=== PATIENT | male | born 1970 | race Two or more races ===

== ENCOUNTER 2019-10-16 09:46 | Emergency (ER) | payer SELFPAY ==
[~2019-10-16] VITALS: Ht 170.2 cm; Wt 55.0 kg
[2019-10-16] MEDS ORDERED: VISCOUS LIDOCAINE 2% 15 ML UDC MM STA (11:08)
[2019-10-16] MEDS ORDERED: MAGNESIUM/ALUMINUM HYDROXIDE/SIMETHICONE 30ML UDC PO ONE (11:15)
[2019-10-16 11:18] LABS: CLARITY URINE CLEAR (CLEAR); COLOR URINE YELLOW (YELLOW); KETONES URINE NEGATIVE (NEGATIVE); LEUKOCYTE ESTERASE URINE NEGATIVE (NEGATIVE); NITRITE URINE NEGATIVE (NEGATIVE); OCCULT BLOOD URINE 1+ (NEGATIVE); PH URINE 5.5 (4.5-8.0); PROTEIN URINE NEGATIVE (NEGATIVE); SPECIFIC GRAVITY URINE 1.026 (1.005-1.030)
[2019-10-16 11:28] LABS: BASOPHILS % 1.1 % (0.0-2.0); EOSINOPHILS % 1.8 % (0.0-5.0); HEMATOCRIT. 39.7 % (42.0-52.0); HEMOGLOBIN. 13.6 g/dL (14.0-18.0); LYMPHOCYTES % 37.4 % (20.0-50.0); MEAN CORPUSCULAR HEMOGLOBIN 30.6 pg (28.0-32.0); MEAN CORPUSCULAR VOLUME 89.5 fL (80.0-94.0); MEAN PLATELET VOLUME 8.4 fl (7.4-10.4); MONOCYTES % 5.4 % (2.0-8.0); NEUTROPHILS % 54.3 % (40.0-76.0); PLATELET 179 x1000/uL (130-400); RED BLOOD CELL COUNT 4.44 mill/uL (4.7-6.1); RED CELL DISTRIBUTION WIDTH 13.3 % (11.6-14.6)
[2019-10-16 11:35] LABS: CHLORIDE 108 mEq/L (98-107)
[2019-10-16 11:36] LABS: PROTHROMBIN TIME 11.1 sec (9.6-11.0)
[2019-10-16 11:38] LABS: *AMPHETAMINES SCREEN URINE NEGATIVE (NEGATIVE); *BARBITURATES SCREEN URINE NEGATIVE (NEGATIVE); *BENZODIAZEPINES SCREEN URINE NEGATIVE (NEGATIVE); *COCAINE SCREEN URINE NEGATIVE (NEGATIVE)
[2019-10-16 11:39] LABS: CANNABINOID URINE SCREEN NEGATIVE (NEGATIVE); METHADONE URINE SCREEN NEGATIVE (NEGATIVE); OPIATES URINE SCREEN NEGATIVE (NEGATIVE); PHENCYCLIDINE URINE SCREEN NEGATIVE (NEGATIVE)
[2019-10-16 11:40] LABS: ETHANOL BLOOD < 10 mg/dL
[2019-10-16 13:22] VITALS: BP 121/79
[2019-10-17] MEDS ORDERED: OMEP40CA12 PO (08:36)
== END 2019-10-16 13:23 | disposition home or self-care (01) ==
LOC: ER 09:46
DX: R10.13 Epigastric pain (principal); R10.12 Left upper quadrant pain
CPT/HCPCS: 36415; 76705; 80053; 80305; 80320; 81003; 85025; 99284; G0480

== ENCOUNTER 2019-10-17 08:32 | Emergency (ER) | payer MEDICAID ==
[~2019-10-17] VITALS: Ht 170.2 cm; Wt 55.0 kg
[2019-10-17] MEDS ORDERED: OMEP40CA12 PO (08:36)
[2019-10-17] MEDS ORDERED: MORPHINE SULFATE 4 MG/ML CPJ (NOT FOR IM USE) IV STA (08:59)
[2019-10-17] MEDS ORDERED: ONDANSETRON HCL 4MG/2ML INJ IV STA (08:59)
[2019-10-17 09:35] LABS: BASOPHILS % 0.6 % (0.0-2.0); EOSINOPHILS % 1.9 % (0.0-5.0); HEMATOCRIT. 39.1 % (42.0-52.0); HEMOGLOBIN. 13.3 g/dL (14.0-18.0); LYMPHOCYTES % 22.3 % (20.0-50.0); MEAN CORPUSCULAR HEMOGLOBIN 30.6 pg (28.0-32.0); MEAN CORPUSCULAR VOLUME 89.7 fL (80.0-94.0); MEAN PLATELET VOLUME 8.8 fl (7.4-10.4); MONOCYTES % 4.6 % (2.0-8.0); NEUTROPHILS % 70.6 % (40.0-76.0); PLATELET 177 x1000/uL (130-400); RED BLOOD CELL COUNT 4.36 mill/uL (4.7-6.1); RED CELL DISTRIBUTION WIDTH 13.2 % (11.6-14.6)
[2019-10-17 09:41] LABS: CHLORIDE 106 mEq/L (98-107); PROTHROMBIN TIME 11.1 sec (9.6-11.0)
[2019-10-17] MEDS ORDERED: KETOROLAC 30MG/ML VIAL IV ONE (10:45)
[2019-10-17 11:25] VITALS: BP 127/89
== END 2019-10-17 11:30 | disposition home or self-care (01) ==
LOC: ER 08:32
DX: N20.0 Calculus of kidney (principal); K80.20 Calculus of gallbladder without cholecystitis without obstruction
CPT/HCPCS: 36415; 74176; 80053; 83690; 85025; 85610; 96374; 96375; 99284; J1885; J2270; J2405

== ENCOUNTER 2019-10-21 05:54 | Emergency (ER) | payer MEDICAID ==
[~2019-10-21] VITALS: Ht 165.1 cm; Wt 73.0 kg
[~2019-10-21 05:54] MED LIST: OMEP40CA12 PO
[2019-10-21] MEDS ORDERED: ONDANSETRON 4MG ODT PO STA (06:39)
[2019-10-21] MEDS ORDERED: ONDANSETRON HCL 4MG/2ML INJ IV STA (06:39)
[2019-10-21 06:53] LABS: BASOPHILS % 0.6 % (0.0-2.0); EOSINOPHILS % 2.3 % (0.0-5.0); HEMOGLOBIN. 12.3 g/dL (14.0-18.0); LYMPHOCYTES % 36.8 % (20.0-50.0); MEAN CORPUSCULAR HEMOGLOBIN 30.6 pg (28.0-32.0); MEAN CORPUSCULAR VOLUME 89.6 fL (80.0-94.0); MEAN PLATELET VOLUME 8.7 fl (7.4-10.4); MONOCYTES % 4.9 % (2.0-8.0); NEUTROPHILS % 55.4 % (40.0-76.0); PLATELET 155 x1000/uL (130-400); RED BLOOD CELL COUNT 4.02 mill/uL (4.7-6.1); RED CELL DISTRIBUTION WIDTH 13.3 % (11.6-14.6)
[2019-10-21 07:00] LABS: CHLORIDE 106 mEq/L (98-107); PROTHROMBIN TIME 11.2 sec (9.6-11.0)
[2019-10-21 07:18] LABS: CLARITY URINE CLEAR (CLEAR); COLOR URINE YELLOW (YELLOW); KETONES URINE TRACE (NEGATIVE); LEUKOCYTE ESTERASE URINE NEGATIVE (NEGATIVE); NITRITE URINE NEGATIVE (NEGATIVE); OCCULT BLOOD URINE 1+ (NEGATIVE); PROTEIN URINE NEGATIVE (NEGATIVE); SPECIFIC GRAVITY URINE 1.022 (1.005-1.030)
[2019-10-21 08:50] VITALS: BP 124/81
== END 2019-10-21 08:57 | disposition home or self-care (01) ==
LOC: ER 05:54
DX: K80.50 Calculus of bile duct without cholangitis or cholecystitis without obstruction (principal)
CPT/HCPCS: 36415; 76700; 80053; 81003; 83690; 85025; 85610; 96374; 99284; J2405; Q0162

== ENCOUNTER 2022-03-26 19:45 | Emergency (ER) | payer MEDICAID ==
[~2022-03-26] VITALS: Ht 162.6 cm; Wt 66.8 kg
[~2022-03-26 19:45] MED LIST changes: -OMEP40CA12 PO; +OMEP40CA20 PO
[2022-03-26] MEDS ORDERED: HYDROCODONE/ACETAMINOPHEN 5/325MG TABLET PO ONE (22:45)
[2022-03-26] MEDS ORDERED: AMOXICILLIN 500 MG CAPSULE PO ONE (22:45)
[2022-03-26] MEDS ORDERED: IBUP-2029 MT (22:51)
[2022-03-26] MEDS ORDERED: T3 PO (22:51)
[2022-03-26] MEDS ORDERED: AMOX-494 MT (22:51)
[2022-03-26 23:38] VITALS: BP 144/77
== END 2022-03-26 23:39 | disposition home or self-care (01) ==
LOC: ER 19:45
DX: K08.89 Other specified disorders of teeth and supporting structures (principal)
CPT/HCPCS: 99283

== ENCOUNTER 2022-11-18 20:35 | Emergency (ER) | payer MEDICAID ==
[~2022-11-18] VITALS: Ht 162.6 cm; Wt 64.0 kg
[~2022-11-18 20:35] MED LIST changes: +AMOX-494 MT; +IBUP-2029 MT; +T3 PO
[2022-11-18] MEDS ORDERED: METHOCARBAMOL 500MG TABLET PO ONE (22:00)
[2022-11-18] MEDS ORDERED: IBUPROFEN 600MG TABLET PO ONE (22:00)
[2022-11-18 22:14] VITALS: BP 134/87
[2022-11-18] MEDS ORDERED: METH-653 MT (22:17)
[2022-11-18] MEDS ORDERED: IBUP-2029 MT (22:17)
== END 2022-11-18 22:15 | disposition home or self-care (01) ==
LOC: ER 20:35
DX: S33.5XXA Sprain of ligaments of lumbar spine, initial encounter (principal); X58.XXXA Exposure to other specified factors, initial encounter; Y93.89 Activity, other specified; Y92.89 Other specified places as the place of occurrence of the external cause; Y99.8 Other external cause status; Z79.899 Other long term (current) drug therapy
CPT/HCPCS: 99283

== ENCOUNTER 2022-12-10 09:20 | Emergency (ER) | payer MEDICAID ==
[~2022-12-10] VITALS: Ht 162.6 cm; Wt 63.0 kg
[~2022-12-10 09:20] MED LIST changes: +METH-653 MT
[2022-12-10 09:25] VITALS: BP 149/94; PULSE 70; RESP 16; TEMP 98.6; O2SAT 98
[2022-12-10 11:39] LABS: CLARITY URINE CLEAR (CLEAR); COLOR URINE YELLOW (YELLOW); KETONES URINE NEGATIVE (NEGATIVE); LEUKOCYTE ESTERASE URINE NEGATIVE (NEGATIVE); NITRITE URINE NEGATIVE (NEGATIVE); OCCULT BLOOD URINE 1+ (NEGATIVE); PH URINE 5.5 (4.5-8.0); PROTEIN URINE NEGATIVE (NEGATIVE); SPECIFIC GRAVITY URINE 1.021 (1.005-1.030)
[2022-12-10] MEDS ORDERED: NITR-87 MT (12:14)
== END 2022-12-10 12:44 | disposition home or self-care (01) ==
LOC: ER 10:23
DX: N39.0 Urinary tract infection, site not specified (principal)
CPT/HCPCS: 76770; 81003; 99284

== ENCOUNTER 2025-05-06 08:16 | Emergency (ER) | payer MEDICAID ==
[~2025-05-06] VITALS: Ht 162.6 cm; Wt 64.0 kg
[~2025-05-06 08:16] MED LIST changes: +IBUP-1455 MT; -IBUP-2029 MT; +NITR-87 MT
[2025-05-06 08:22] VITALS: O2SAT 98
[2025-05-06] MEDS: CYCLOBENZAPRINE 10MG TABLET PO ONE (09:08)
[2025-05-06] MEDS: KETOROLAC 15MG/ML VIAL IM ONE (09:09)
[2025-05-06] MEDS ORDERED: CYCL10TA21 MT (10:50)
[2025-05-06] MEDS ORDERED: NAPR-681 MT (10:50)
[2025-05-06 10:53] VITALS: BP 130/70; PULSE 70; RESP 15; TEMP 36.7; O2SAT 98
== END 2025-05-06 10:56 | disposition home or self-care (01) ==
LOC: ER 08:16
DX: M54.50 Low back pain, unspecified (principal); Z79.1 Long term (current) use of non-steroidal anti-inflammatories (NSAID); Z79.899 Other long term (current) drug therapy
CPT/HCPCS: 99283; 72100; 96372; J1885